=== PATIENT | female | born 1965 ===

== ENCOUNTER 2017-04-08 08:12 | Inpatient (IN) | payer OTHER ==
[2017-03-12 12:05] VITALS: BMI 44.0
--- NOTE | 2017-03-12 12:29 | PAT Medication Instructions ---
Service Date Mar 12, 2017. Current Home Medication List Multivitamin (Multivitamin), 1 TAB PO DAILY PRN for WHEN REMEMBERS Medication Instructions For Your Scheduled Surgery - Hold the following medications the morning of surgery: Multivitamin (Multivitamin), 1 TAB PO DAILY PRN for WHEN REMEMBERS If you have any questions please call us at [phone] (Elva Payne PA-C) or [phone] or [phone]
[2017-03-12 12:53] LABS: BASO % 0.5 %; BASO ABS # 0.03 K/uL (0-0.2); COMPLETE YES; HEMATOCRIT 38.1 % (37-47); IG% 0.2 %; LYMPH % 21.6 %; LYMPH ABS # 1.42 K/uL (1.2-3.4); MEAN CELL VOLUME 90.1 fL (80-100); MEAN CORPUSCULAR HEMOGLOBIN 29.6 pg (25-34); MEAN CORPUSCULAR HGB CONC 32.8 g/dl (32-36); MEAN PLATELET VOLUME 10.6 fL (7.4-10.4); MONO % 5.6 %; NEUT % 70.1 %; PLATELET COUNT 210 K/uL (130-400); RED BLOOD COUNT 4.23 M/uL (4.2-5.4); WHITE BLOOD COUNT 6.58 K/uL (4.8-10.8)
--- NOTE | 2017-03-12 13:00 | DIAGNOSTIC IMAGING REPORT ---
CHEST PREADMISSION(PA/LAT) CLINICAL HISTORY: PAT preoperative evaluation COMPARISON STUDY: No previous studies for comparison. FINDINGS: The bones soft tissues and hemidiaphragms are normal. The cardiomediastinal silhouette is normal. The lungs are clear. The pulmonary vasculature is normal. IMPRESSION: Negative chest. Electronically signed by: Justin Joshi M.D. 03/12/2017 12:58 PM Dictated Date/Time: 03/12/2017 12:57 PM
[2017-03-12 13:02] LABS: INR 0.9 (0.9-1.1); PROTHROMBIN TIME (PATIENT) 10.1 SECONDS (9.0-12.0)
[2017-03-12 13:04] LABS: URINE APPEARANCE CLEAR (CLEAR); URINE BILIRUBIN NEG (NEG); URINE COLOR YELLOW; URINE NITRITE NEG (NEG); URINE PH 6.5 (4.5-7.5); URINE SPECIFIC GRAVITY 1.012 (1.000-1.030); UROBILINOGEN NEG (NEG); ZZUR CULT IF INDIC CLEAN CATCH NO
[2017-03-12 13:08] LABS: MANUAL MICROSCOPIC REQUIRED? NO; REVIEW REQ? NO
[2017-03-12 13:14] LABS: BUN/CREATININE RATIO 18.6 (10-20); CALCIUM 8.7 mg/dl (8.5-10.1); CREATININE 0.93 mg/dl (0.60-1.20)
--- NOTE | 2017-04-04 16:22 | HISTORY & PHYSICAL EXAMINATION ---
DATE OF ADMISSION: 04/08/2017 CHIEF COMPLAINT: Right knee pain. HISTORY OF PRESENT ILLNESS: Harjit is a 51-year-old female with a multiple-year history of pain in her right knee. The patient rates her pain a 10/10. She has pain with her daily activities. She has limited standing and walking tolerance. Pain is worse with weightbearing. The patient has had injections, NSAIDs and knee arthroscopy without relief. She has failed conservative treatment and is scheduled for right knee replacement. PAST MEDICAL HISTORY: Obesity. She denies heart disease and diabetes. Also has a history of DVT left lower extremity 27 years ago. SURGICAL HISTORY: Right knee arthroscopy and lipoma excision. SOCIAL HISTORY: The patient drinks 2 drinks per week. She denies tobacco use. She lives in a 2-story home. She is and works as a dump truck operator. FAMILY HISTORY: Positive for DVT in her mom status post surgery. MEDICATIONS: None. ALLERGIES: None. REVIEW OF SYSTEMS: See HPI. Ten other systems reviewed, all negative. PHYSICAL EXAMINATION: VITAL SIGNS: Height 5 feet 6, weight 282 pounds. BMI is 46. GENERAL: This is a well-developed, well-nourished female who is alert and oriented x3. Mood and affect are appropriate. HEENT: Normocephalic, atraumatic. Mucous membranes are moist and intact. NECK: Supple without lymphadenopathy. HEART: Regular rate and rhythm without murmurs, rubs or gallops. LUNGS: Clear to auscultation without wheezes or rhonchi. ABDOMEN: Soft and nontender. Bowel sounds are equal and active. EXTREMITIES: No ecchymosis, redness or warmth. Thigh and calf are soft and nontender. She has neutral alignment. Range of motion is from 15-90 degrees. She has no laxity. She is neurovascularly intact with +5/5 strength. X-RAY EXAMINATION: AP and lateral views show joint space narrowing and osteophyte formation. IMPRESSION: Degenerative joint disease, right knee. PLAN: The patient will be admitted for a right total knee arthroplasty. The patient's MRI was usable due to her flexion contracture. We will plan on aspirin for DVT prophylaxis.
[~2017-04-08] VITALS: Ht 167.6 cm; Wt 127.2 kg
[2017-04-08] VITALS (7 sets, daily range): BP systolic 104–127; BP diastolic 64–90; PULSE 71–79; TEMP 36.4–36.8; O2SAT 96–99; Ht 167.6 cm; Wt 127.2 kg
[~2017-04-08 08:12] MED LIST: ACETAMINOPHEN 500 MG TAB PO SCH; BUPIVACAINE 0.5 % 5 MG/1 ML PF 10ML VIAL ONE; CEFAZOLIN 3000 MG/65 ML D5W 65 ML IV SCH; CeleBREX 200 MG CAP PO SCH; DEXAMETHASONE 4 MG TAB PO SCH; FAMOTIDINE 20 MG TAB PO SCH; GABAPENTIN 300 MG CAP PO SCH; LACTATED RINGER'S 1000ML 1,000 ML IV SCH; LACTATED RINGER'S 1000ML 500 ML IV ONE; METOCLOPRAMIDE HCL 10 MG TAB PO SCH; MULT-506 PO; OXYCODONE HCL 10 MG TABCR (OXYCONTIN) PO SCH; ROPIVACAINE 5MG/ML 30 ML 150 MG, BUPIVACAINE/EPINEPHR 0.5% MPF 30 ML, KETOROLAC TROMETH... INFIL SCH
[2017-04-08] MEDS ORDERED: LIDOCAINE HCL 2% 2 ML VIAL (20MG/ML) ONE (08:52)
[2017-04-08] MEDS ORDERED: PROPOFOL IV EMULSION 10 MG/ML 20 ML VIAL IV ONE (08:52)
[2017-04-08] MEDS ORDERED: MIDAZOLAM HCL 1 MG/ML 2ML VIAL ONE (08:52)
--- NOTE | 2017-04-08 09:40 | History & Physical Bridge Note ---
H&P Re-Evaluation Bridge Note: I have examined the patient, reviewed the History & Physical and in the interval since the performance of the History & Physical I have noted the following changes of clinical significance: No changes noted
[2017-04-08] MEDS ORDERED: ORTHO JOINT ANESTHETIC ONE (10:17)
[2017-04-08] MEDS ORDERED: BUPIVACAINE/EPINEPHRINE 0.25% 1:200,000 30 ML VIAL ONE (10:17)
[2017-04-08] MEDS ORDERED: POVIDONE-IODINE OP SOLN 30 ML BTL ONE (10:18)
[2017-04-08] MEDS ORDERED: BACITRACIN 50000 UNIT VIAL ONE (10:18)
[2017-04-08] MEDS: TRANEXAMIC ACID INJ 1,000 MG in SODIUM CHLORIDE 0.9% 100ML 100 ML IV SCH ×2 (10:20→13:49)
[2017-04-08] MEDS ORDERED: EpHEDrine SULFATE INJ 50 MG/ML AMP ONE (11:06)
[2017-04-08] MEDS ORDERED: SODIUM CHLORIDE 0.9% INJ 10 ML VIAL ONE (11:06)
[2017-04-08] MEDS: VANCOMYCIN INJ 400 MG in NSS 100ML IR SCH ×2 (11:43→11:52)
[2017-04-08] MEDS: POLYMYXIN B SULFATE 100,000 UNITS in NSS 100ML IR SCH ×2 (11:43→11:51)
--- NOTE | 2017-04-08 12:13 | [facility] Post Operative Brief Note ---
Immediate Operative Summary Operative Date April 08, 2017. Pre-Operative Diagnosis Right knee degenerative joint disease Post-Operative Diagnosis same MORBID OBESITY BMI 46 Procedure(s) Performed Right Total Knee Arthroplasty, Cemented Surgeon Dr. Joon Hayden Armature Connector Surgeon(s) Rober Higgins PA-C Estimated Blood Loss 5 ML Findings NITIN GONZALEZ ACL DEF Specimens a. Right knee bone and tissue Complication(s) None Disposition Recovery Room / PACU
[2017-04-08] MEDS ORDERED: MAGNESIUM HYDROXIDE SUSP 30 ML UDC PO PRN (12:15)
[2017-04-08] MEDS ORDERED: ONDANSETRON INJ 2 MG/ML 2 ML VIAL IV PRN ×2 (12:15)
[2017-04-08] MEDS ORDERED: DiphenhydrAMINE HCL 50 MG/ML VIAL IV PRN (12:15)
[2017-04-08] MEDS ORDERED: KETOROLAC TROMETHAMINE 30 MG/ML VIAL IV. PRN (12:15)
[2017-04-08] MEDS ORDERED: FENTANYL CITRATE INJ 50 MCG/1 ML 2 ML VIAL IV PRN (12:15)
[2017-04-08] MEDS ORDERED: ZOLPIDEM TARTRATE 5 MG TAB PO PRN (12:15)
[2017-04-08] MEDS ORDERED: ALUMINUM/MAGNESIUM/SIMETH (MAALOX MAX) 30 ML UDC PO PRN (12:15)
[2017-04-08] MEDS ORDERED: BISACODYL 10 MG SUPP PR PRN (12:15)
[2017-04-08] MEDS ORDERED: METOCLOPRAMIDE HCL INJ 5 MG/ML 2 ML VIAL IV PRN (12:15)
[2017-04-08] MEDS ORDERED: ATROPINE SULFATE 0.1 MG/ML 5ML SYR IV PRN (12:15)
[2017-04-08] MEDS ORDERED: TRAMADOL HCL 50 MG TAB PO PRN (12:15)
[2017-04-08] MEDS ORDERED: MoRPHine SULFATE 2 MG/ML CARP IV PRN (12:15)
[2017-04-08] MEDS ORDERED: SOD PHOSPHATE/SOD BIPHOSPHATE ENEMA 132 ML BTL PR PRN (12:15)
[2017-04-08] MEDS ORDERED: EpHEDrine SULFATE INJ 50 MG/ML AMP IV PRN (12:15)
--- NOTE | 2017-04-08 13:26 | DIAGNOSTIC IMAGING REPORT ---
RIGHT KNEE 1 OR 2 VIEWS ROUTINE CLINICAL HISTORY: AP/LATERAL IN PACU RIGHT KNEE Right postoperative evaluation COMPARISON: None. DISCUSSION: Patient is status post total joint replacement. Suboptimal AP projection due to rotation area surgical drains are in position. Expected soft tissue postoperative change IMPRESSION: No acute process status post total joint replacement. Electronically signed by: Justin Joshi M.D. 04/08/2017 1:25 PM Dictated Date/Time: 04/08/2017 1:24 PM
[2017-04-08] MEDS: D5W AND 1/2NSS + 20MEQ KCL 1,000 ML IV SCH (14:28)
[2017-04-08] MEDS: ACETAMINOPHEN 500 MG TAB PO SCH ×2 (14:28→21:03)
--- NOTE | 2017-04-08 15:05 | Anesthesiology Progress Note ---
Anesthesia Post Op Note Date & Time April 08, 2017 at 15:05 Vital Signs Pain Intensity: 0.0 Vital Signs Past 12 Hours Date Time Temp Pulse Resp B/P Pulse Ox O2 Delivery O2 Flow Rate FiO2 04/08/17 14:00 96 Nasal Cannula 2.0 04/08/17 14:00 36.4 75 16 111/73 96 Nasal Cannula 2.0 04/08/17 14:00 96 Nasal Cannula 2.0 04/08/17 13:46 71 19 04/08/17 13:46 72 19 98 04/08/17 13:45 121/69 04/08/17 13:41 64 16 98 04/08/17 13:41 64 16 04/08/17 13:40 106/65 04/08/17 13:39 65 20 04/08/17 13:39 64 20 97 04/08/17 13:36 118/68 04/08/17 13:34 65 20 98 04/08/17 13:34 65 20 04/08/17 13:30 120/71 04/08/17 13:29 69 18 04/08/17 13:29 71 18 98 04/08/17 13:28 68 21 98 04/08/17 13:28 68 21 04/08/17 13:25 118/76 04/08/17 13:24 36.6 04/08/17 13:23 73 21 98 04/08/17 13:23 72 21 04/08/17 13:22 78 20 98 04/08/17 13:22 72 20 04/08/17 13:20 125/73 04/08/17 13:17 70 18 04/08/17 13:17 69 18 98 04/08/17 13:16 114/64 04/08/17 13:12 72 24 04/08/17 13:12 72 24 98 04/08/17 13:11 109/64 04/08/17 13:08 72 22 04/08/17 13:08 72 22 98 04/08/17 13:05 125/64 04/08/17 13:03 73 28 99 04/08/17 13:03 73 28 04/08/17 13:00 113/69 04/08/17 12:58 70 17 98 04/08/17 12:58 70 17 04/08/17 12:55 106/63 04/08/17 12:54 116/66 04/08/17 12:53 36.1 65 16 116/66 99 Nasal Cannula 2 04/08/17 12:53 70 04/08/17 12:53 70 99 04/08/17 08:46 36.7 74 20 127/79 96 Room Air Notes Mental Status: alert / awake / arousable, participated in evaluation Pt Amnestic to Procedure: Yes Nausea / Vomiting: adequately controlled Pain: adequately controlled Airway Patency, RR, SpO2: stable & adequate BP & HR: stable & adequate Hydration State: stable & adequate Neuraxial Anesthesia: was administered, sensory block is resolving Anesthetic Complications: no major complications apparent
[2017-04-08] MEDS ORDERED: WARFARIN SOD 5 MG TAB PO SCH (16:00)
--- NOTE | 2017-04-08 17:33 | OPERATIVE REPORT ---
DATE OF OPERATION: 04/08/2017 PREOPERATIVE DIAGNOSES: 1. Degenerative arthritis, right knee. 2. Morbid obesity, body mass index of 46. PROCEDURE: Right total knee replacement. SURGEON: Dr. Hayden. SUPERVISOR ELECTROLYTIC TINNING: TINO Early ANESTHESIA: Spinal. TOURNIQUET TIME: 80 minutes at 300 mmHg. DRAINS: Hemovac x2. CULTURES: None. COMPLICATIONS: None. COMPONENTS USED: [facility] Knee System: Femur size 5, tibia size 5 x 9, patella size 32. NOTE: Rober Triplett was present and assisted throughout due to the complicated nature of this case. He helped with preparation and set up, first assisted throughout and personally closed the fascial, subcutaneous and skin layers and applied the postoperative dressing. DESCRIPTION OF PROCEDURE: Following satisfactory spinal, the patient was supine. A tourniquet was placed. The lower extremity was prepared with ChloraPrep and draped sterilely. Following a surgical time-out, the tourniquet was inflated because of the patient's need for knee surgery with a morbidly obese leg and the use of the nonblock. A midline incision was made. The approach was difficult because of the patient's very large body habitus and severe disease. This required additional time and effort. Eventually, the knee was exposed and showed severe grade 4 changes throughout. The anterior cruciate ligament was absent. The posterior cruciate ligament was excised. Using the IM alignment system with a 5 degree valgus cut, the distal femur was shaped for the size 5 component. When cuts were completed, attention was turned to the tibia. The tibia was resected with the extramedullary alignment guide. The patella was freehand cut. Soft tissue balancing was completed and a trial reduction showed good tensioning and stability on the collateral ligaments. The patella did track laterally and therefore a lateral extracapsular release was performed which improved patellar tracking. The trial components were removed. The capsule was prepared with the orthopedic cocktail and after irrigation, the components were cemented with Simplex G cement. A Betadine soak was performed. When the cement had hardened, the Betadine was irrigated. Two drains were placed. The arthrotomy was closed with a running suture of 0 V-Loc and reinforced with #1 Vicryl. Subcutaneous tissues were closed with #1 and 2-0 Vicryl and the skin with a running subcuticular stitch of 3-0 V-Loc. A surface wound VAC was applied. The tourniquet was deflated. The patient was returned to her bed in stable condition. I attest to the content of the Intraoperative Record and any orders documented therein. Any exceptio ns are noted below.
[2017-04-08] MEDS: CEFAZOLIN IV 2,000 MG in DEXTROSE 5% 50ML 50 ML IV SCH (18:03)
[2017-04-08] MEDS: OXYCODONE HCL 10 MG TABCR (OXYCONTIN) PO SCH (21:01)
[2017-04-08] MEDS: SENNA 8.6 MG TAB PO SCH (21:02)
[2017-04-09] MEDS: D5W AND 1/2NSS + 20MEQ KCL 1,000 ML IV SCH ×2 (00:09→10:30)
[2017-04-09] MEDS: CEFAZOLIN IV 2,000 MG in DEXTROSE 5% 50ML 50 ML IV SCH (02:03)
[2017-04-09 04:15] VITALS: BP 128/83; PULSE 70; TEMP 36.9; O2SAT 98
[2017-04-09] MEDS: ACETAMINOPHEN 500 MG TAB PO SCH ×3 (05:25→21:55)
[2017-04-09 06:23] LABS: HEMATOCRIT 30.5 % (37-47); MEAN CELL VOLUME 89.2 fL (80-100); MEAN CORPUSCULAR HEMOGLOBIN 29.5 pg (25-34); MEAN CORPUSCULAR HGB CONC 33.1 g/dl (32-36); MEAN PLATELET VOLUME 10.2 fL (7.4-10.4); PLATELET COUNT 195 K/uL (130-400); RED BLOOD COUNT 3.42 M/uL (4.2-5.4); WHITE BLOOD COUNT 13.01 K/uL (4.8-10.8)
[2017-04-09 06:31] LABS: PROTHROMBIN TIME (PATIENT) 10.4 SECONDS (9.0-12.0)
[2017-04-09 06:52] LABS: BUN/CREATININE RATIO 15.5 (10-20); CREATININE 0.84 mg/dl (0.60-1.20); POTASSIUM 4.4 mmol/L (3.5-5.1)
[2017-04-09 07:55] VITALS: BP_SYST 121; BP_SYST 124; BP_DIAS 76; PULSE 66; TEMP 36.8; O2SAT 97
--- NOTE | 2017-04-09 07:57 | Orthopedic Progress Note ---
Orthopedic Progress Note Date of Service April 09, 2017. Subjective Post OP Day: 1 (R TKA ) Reports: feeling well, pain controlled w PO medications, Denies: SOB, calf pain , chest pain, complaints, nausea / vomiting Objective calves soft nontender, N/V intact, dressing C/D/I, A&O x3, toes mobile, hemovac drainage (325C LAST SHIFT ) Date Time Temp Pulse Resp B/P Pulse Ox O2 Delivery O2 Flow Rate FiO2 04/09/17 04:15 36.9 70 16 128/83 98 Room Air 04/09/17 00:05 Room Air 04/08/17 23:55 36.8 74 16 124/69 96 Room Air 04/08/17 19:30 36.7 78 18 106/69 97 Room Air 04/08/17 16:39 36.4 73 16 104/64 99 Nasal Cannula 2.0 04/08/17 15:28 Nasal Cannula 2.0 04/08/17 15:00 36.7 79 16 118/79 04/08/17 14:30 71 16 125/90 04/08/17 14:00 96 Nasal Cannula 2.0 04/08/17 14:00 36.4 75 16 111/73 96 Nasal Cannula 2.0 04/08/17 14:00 96 Nasal Cannula 2.0 04/08/17 13:46 71 19 04/08/17 13:46 72 19 98 04/08/17 13:45 121/69 04/08/17 13:41 64 16 98 04/08/17 13:41 64 16 04/08/17 13:40 106/65 04/08/17 13:39 65 20 04/08/17 13:39 64 20 97 04/08/17 13:36 118/68 04/08/17 13:34 65 20 98 04/08/17 13:34 65 20 04/08/17 13:30 120/71 04/08/17 13:29 69 18 04/08/17 13:29 71 18 98 04/08/17 13:28 68 21 98 04/08/17 13:28 68 21 04/08/17 13:25 118/76 04/08/17 13:24 36.6 04/08/17 13:23 73 21 98 04/08/17 13:23 72 21 04/08/17 13:22 78 20 98 04/08/17 13:22 72 20 04/08/17 13:20 125/73 04/08/17 13:17 70 18 04/08/17 13:17 69 18 98 04/08/17 13:16 114/64 04/08/17 13:12 72 24 04/08/17 13:12 72 24 98 04/08/17 13:11 109/64 04/08/17 13:08 72 22 04/08/17 13:08 72 22 98 04/08/17 13:05 125/64 04/08/17 13:03 73 28 99 04/08/17 13:03 73 28 04/08/17 13:00 113/69 04/08/17 12:58 70 17 98 04/08/17 12:58 70 17 04/08/17 12:55 106/63 04/08/17 12:54 116/66 04/08/17 12:53 36.1 65 16 116/66 99 Nasal Cannula 2 04/08/17 12:53 70 04/08/17 12:53 70 99 04/08/17 08:46 36.7 74 20 127/79 96 Room Air Laboratory Results 24 Hours: Test 04/09/17 05:39 Hematocrit 30.5 % Hemoglobin 10.1 g/dL Prothromb Time International Ratio 1.0 Prothrombin Time 10.4 SECONDS Assessment & Plan Assessment: POD 1 TKA MORBID OBESITY BMI 45 HX DVT Plan: MONITOR TODAY FOR DRAINAGE BEGIN PT PLAN TO DC WEDNEDAY IF DRAINAGE DOWN COUMADIN FOR DVT PROPH Inhouse Planning Pain Management: Celebrex, Oxycontin, PO Tylenol, Oxy IR DVT Prophylaxis: TEDs, SCDs, Coumadin Discharge Planning Discharge Planning: home with oppt Pain Management: Celebrex, Oxycontin, PO Tylenol, Oxy IR DVT Prophylaxis: TEDs, Coumadin
[2017-04-09 08:36] VITALS: O2SAT 97
[2017-04-09] MEDS: MULTIVITAMIN TAB PO SCH (09:28)
[2017-04-09] MEDS: OXYCODONE HCL 10 MG TABCR (OXYCONTIN) PO SCH ×2 (09:29→21:53)
[2017-04-09] MEDS: PANTOprazole SOD 40 MG TAB PO SCH (09:29)
--- NOTE | 2017-04-09 10:40 | Anesthesiology Progress Note ---
Anesthesia Post Op Note Date & Time April 09, 2017 at 10:40 Vital Signs Pain Intensity: 5.0 Vital Signs Past 12 Hours Date Time Temp Pulse Resp B/P Pulse Ox O2 Delivery O2 Flow Rate FiO2 04/09/17 08:36 97 Room Air 04/09/17 08:00 Room Air 04/09/17 07:55 36.8 66 18 124/76 97 Room Air 04/09/17 04:15 36.9 70 16 128/83 98 Room Air 04/09/17 00:05 Room Air 04/08/17 23:55 36.8 74 16 124/69 96 Room Air Notes Mental Status: alert / awake / arousable, participated in evaluation Pt Amnestic to Procedure: Yes Nausea / Vomiting: adequately controlled Pain: adequately controlled Airway Patency, RR, SpO2: stable & adequate BP & HR: stable & adequate Hydration State: stable & adequate Neuraxial Anesthesia: was administered, sensory block resolved Anesthetic Complications: no major complications apparent
[2017-04-09 11:33] VITALS: BP 126/80; PULSE 66; TEMP 36.8; O2SAT 98
[2017-04-09] MEDS ORDERED: WARFARIN SOD 5 MG TAB PO SCH (16:00)
[2017-04-09 16:08] VITALS: BP 136/82; PULSE 82; TEMP 36.9; O2SAT 99
[2017-04-09] MEDS: OXYCODONE HCL IR 5 MG TAB (IMMEDIATE RELEASE) PO PRN (17:20)
[2017-04-09] MEDS: SENNA 8.6 MG TAB PO SCH (20:55)
[2017-04-09 23:35] VITALS: BP 117/75; PULSE 68; TEMP 36.9; O2SAT 94
[2017-04-10] MEDS: ACETAMINOPHEN 500 MG TAB PO SCH (05:27)
[2017-04-10 06:05] VITALS: BP 106/69; PULSE 64; TEMP 36.8; O2SAT 97
[2017-04-10] MEDS: OXYCODONE HCL IR 5 MG TAB (IMMEDIATE RELEASE) PO PRN ×2 (06:16→13:10)
--- NOTE | 2017-04-10 07:56 | Orthopedic Progress Note ---
Orthopedic Progress Note Date of Service April 10, 2017. Subjective Post OP Day: 2 Reports: feeling well, Denies: SOB, calf pain, chest pain, light headedness, nausea / vomiting Objective calves soft nontender, N/V intact, dressing C/D/I, A&O x3, toes mobile Date Time Temp Pulse Resp B/P Pulse Ox O2 Delivery O2 Flow Rate FiO2 04/10/17 06:05 36.8 64 16 106/69 97 Room Air 04/10/17 00:15 Room Air 04/09/17 23:35 36.9 68 16 117/75 94 Room Air 04/09/17 16:08 36.9 82 18 136/82 99 Room Air 04/09/17 15:35 Room Air 04/09/17 11:33 36.8 66 18 126/80 98 Room Air 04/09/17 08:36 97 Room Air 04/09/17 08:00 Room Air 04/09/17 07:55 36.8 66 18 124/76 97 Room Air Assessment & Plan Assessment: POD 2 TKA MORBID OBESITY BMI 45 HX DVT Plan: MONITOR TODAY FOR DRAINAGE BEGIN PT PLAN TO DC WEDNEDAY IF DRAINAGE DOWN COUMADIN FOR DVT PROPH Inhouse Planning Pain Management: Celebrex, Oxycontin, PO Tylenol, Oxy IR DVT Prophylaxis: TEDs, SCDs, Coumadin Discharge Planning Discharge Planning: home with oppt (DC HOME TODAY) Pain Management: Celebrex, Oxycontin, PO Tylenol, Oxy IR DVT Prophylaxis: TEDs, Coumadin
--- NOTE | 2017-04-10 07:58 | Discharge Instructions ---
Discharge Instructions Date of Service April 10, 2017. Admission Reason for Admission: Right Knee Degenerative Arthritis Discharge Discharge Diagnosis / Problem: SP RIGHT TKA Discharge Goals Goal(s): Decrease discomfort, Improve function, Increase independence Activity Recommendations Activity Limitations: per Instructions/Follow-up section . Instructions / Follow-Up Instructions / Follow-Up ACTIVITY RECOMMENDATIONS: SELF CARE INSTRUCTIONS AFTER TOTAL KNEE REPLACEMENT A. You may need to continue a physical therapy program after discharge from the hospital. There are several options available to you. Your doctor will assist you in selecting the best one for you. 1. An out-patient facility 2 to 3 times a week for therapy or home therapy. 2. Continue working on all exercises taught to you in the hospital. Your goals should be to increase bending of your knee to 90 degrees and beyond and to fully straighten your knee. B. You may progress at your own pace from walking with a walker or crutches to a cane; then to no assistive devices. C. Make walking a part of your daily routine. Be up as much as comfortable with rest periods throughout the day. Rest with leg elevation is very important. Use the ice wrap frequently for the first 3-4 weeks. D. There are no restrictions on activities. You may ride in a car, shop, participate in money order clerk and all social activities. E. Wear the long elastic stockings (VINAYAK hose) 20 hours a day for 2 weeks after surgery. They can be removed several times a day for laundering and for a bath. F. You may shower, no tub baths until cleared by your doctor. SPECIAL CARE INSTRUCTIONS: VERY IMPORTANT TO READ AND REVIEW A. There are a few signs you need to watch for after you are home. Call [facility] if you notice any of the followin. Increased severe knee pain. Some pain is expected especially when you exercise. 2. Increased swelling in your leg or knee; pain or swelling of the calf muscle in either lower leg. 3. Any fluid drainage from the incision. 4. Shortness of breath or chest pain. B. Please call [facility] at if you have any concerns or questions about your operation or recovery. The doctor or his nurse will return your call promptly. C. You must take antibiotics before dental work, bladder, bowel or other surgery. Your doctor will provide you with a permanent care to carry describing this precaution. IMPORTANT: . * HIGH RISK PATIENTS MAY BE PRESCRIBED A STRONGER BLOOD THINNER. THIS WILL BE PROVIDED AT DISCHARGE. -COUMADIN. WILL REQUIRE WEEKLY BLOOD DRAWS TO MONITOR INR. * CALL IF INCREASED PAIN, REDNESS, DRAINAGE OR FEVER GREATER THAT 101. * WEAR VINAYAK HOSE 20 HOURS PER DAY FOR 2 WEEKS. Prevena- This is a large suction dressing covering your incision. This will help pull any excess drainage from the wound and allow your incision to heal properly. You may shower with this if you can keep the unit outside of the shower. If any bleeding or leakage is noted please call your doctor's office. This will remain on your incision for 7 days and then should be removed. This can be done yourself or by the home nursing staff if applicable. The entire unit is disposable once removed. Once removed, keep incision clean and dry. If redness or drainage is noted, please call your surgeon. FOLLOW UP VISIT: If appointment is not already scheduled: Please call [facility] to make a follow-up appointment for 2 weeks after your surgery at . Current Hospital Diet Patient's current hospital diet: Regular Diet Discharge Diet Recommended Diet: Regular Diet Procedures Procedures Performed: Right Total Knee Arthroplasty, Cemented Pending Studies Studies pending at discharge: no Medical Emergencies . Who to Call and When: Medical Emergencies: If at any time you feel your situation is an emergency, please call 911 immediately. . Non-Emergent Contact Non-Emergency issues call your: Surgeon . "Provider Documentation" section prepared by Emperatriz Anderson. . VTE Core Measure Inpt VTE Proph given/why not?: Aby Lovett, SCD's [place] Drug Monitoring Program Search Results: patient reviewed within database, no issues identified
[2017-04-10] MEDS ORDERED: MORP-157 PO (08:01)
[2017-04-10] MEDS ORDERED: ACET-1138 PO (08:01)
[2017-04-10] MEDS ORDERED: ONDA8TAB6 PO (08:01)
[2017-04-10] MEDS ORDERED: CLB200 PO (08:01)
[2017-04-10] MEDS ORDERED: WARF2TAB PO (08:01)
[2017-04-10] MEDS ORDERED: SNK PO (08:01)
[2017-04-10] MEDS ORDERED: RXC5 PO (08:01)
[2017-04-10] MEDS: PANTOprazole SOD 40 MG TAB PO SCH (09:28)
[2017-04-10] MEDS: MULTIVITAMIN TAB PO SCH (09:28)
[2017-04-10] MEDS: OXYCODONE HCL 10 MG TABCR (OXYCONTIN) PO SCH (09:30)
[2017-04-10 11:45] VITALS: BP 106/69; PULSE 64; TEMP 36.8; O2SAT 97
[2017-04-10] MEDS ORDERED: CeleBREX 200 MG CAP PO SCH (21:00)
--- NOTE | 2017-04-15 22:28 | DISCHARGE SUMMARY ---
DISCHARGE DIAGNOSIS: Degenerative joint disease, right knee. SECONDARY DIAGNOSES: Obesity, history of deep venous thrombosis, left lower extremity 27 years ago. CONSULTS: None. COMPLICATIONS: None. PROCEDURES: Right total knee arthroplasty performed by Dr. Giovanni Hayden on 04/08/2017. BRIEF HISTORY: As dictated in the history and physical. HOSPITAL SUMMARY: The patient was admitted on the above date and had the above-noted surgery performed, which she tolerated well. On her first postoperative day, she was feeling well, pain was controlled and she had no complaints. Calves were soft, nontender, neurovascularly intact. Dressings clean, dry and intact. Toes were mobile. Vital signs were stable. She is afebrile. Hemoglobin was 10.1 and she was started on physical therapy protocol and continued on DVT prophylaxis and pain management. Plans were to continue her PT and monitor her drainage from her Hemovac and discharge the following day. By her second postoperative day, she was feeling well and had no complaints. Calves were soft, nontender, neurovascularly intact. Dressings clean, dry and intact. Toes were mobile. Vital signs were stable. She was afebrile. She was progressing well with her physical therapy and it was felt that she was progressing well and it was felt that she could be discharged to home. For further review, please see chart. LAB AND X-RAY DATA: As per chart. DISCHARGE INSTRUCTIONS: The patient was discharged to home on 04/10/2017. DIET: Regular. ACTIVITY: Follow the TK instruction sheets and special care instructions, as noted. Follow up with Dr. Giovanni Hayden in 2 weeks. The patient to call for appointment, if one has not been made for you. DISCHARGE MEDICATIONS: Acetaminophen 1000 mg p.o. q. 8 hours, Celebrex 200 mg p.o. b.i.d., morphine sulfate extended release 15 mg p.o. q. 12 hours, Zofran 8 mg p.o. q. 8 hours p.r.n., oxycodone 5-10 mg p.o. q. 4 hours p.r.n., senna 17.2 mg at bedtime, warfarin 4 mg p.o. daily and multivitamin 1 tab p.o. daily.
== END 2017-04-10 13:30 | disposition home or self-care (01) | DRG 470 ==
LOC: ENRESERVTM → ENRESERVDT → C.ACU 08:12 → C.3E 12:16
PROVIDERS: ADMIT Orthopaedic Surgery; ATTEND Orthopaedic Surgery
PROC: 0SRC0J9 Replacement of Right Knee Joint with Synthetic Substitute, Cemented, Open Approach (ICD-10-PCS; principal; 2017-04-08 10:45)
DX: M17.11 Unilateral primary osteoarthritis, right knee (principal); Z68.42 Body mass index [BMI] 45.0-49.9, adult; E66.01 Morbid (severe) obesity due to excess calories; R00.2 Palpitations; G62.9 Polyneuropathy, unspecified; Z86.718 Personal history of other venous thrombosis and embolism

== ENCOUNTER → 2017-07-23 | Outpatient (CLI) | payer OTHER ==
[~2017-07-23] MED LIST changes: +ACET-1138 PO; -ACETAMINOPHEN 500 MG TAB PO SCH; -BUPIVACAINE 0.5 % 5 MG/1 ML PF 10ML VIAL ONE; -CEFAZOLIN 3000 MG/65 ML D5W 65 ML IV SCH; +CLB200 PO; -CeleBREX 200 MG CAP PO SCH; -DEXAMETHASONE 4 MG TAB PO SCH; -FAMOTIDINE 20 MG TAB PO SCH; -GABAPENTIN 300 MG CAP PO SCH; -LACTATED RINGER'S 1000ML 1,000 ML IV SCH; -LACTATED RINGER'S 1000ML 500 ML IV ONE; -METOCLOPRAMIDE HCL 10 MG TAB PO SCH; +ONDA8TAB6 PO; -OXYCODONE HCL 10 MG TABCR (OXYCONTIN) PO SCH; -ROPIVACAINE 5MG/ML 30 ML 150 MG, BUPIVACAINE/EPINEPHR 0.5% MPF 30 ML, KETOROLAC TROMETH... INFIL SCH; +RXC5 PO; +SNK PO; +WARF2TAB PO
[2017-07-23 19:07] LABS: LYME DISEASE AB IGG NEG (NEG); LYME DISEASE AB IGM NEG (NEG)
== END | disposition home or self-care (01) ==
LOC: C.LABSPEC 12:51
PROVIDERS: ATTEND Family Medicine
DX: S80.861A Insect bite (nonvenomous), right lower leg, initial encounter (principal); X58.XXXA Exposure to other specified factors, initial encounter